=== PATIENT | female | born 1930 | race Caucasian/White ===

== ENCOUNTER 2016-10-28 08:21 | Outpatient (CLI) | payer MEDICARE, BC ==
[~2016-10-28] VITALS: Ht 165.1 cm; Wt 63.2 kg
--- NOTE | ~2016-10-28 | HEMODYNAMI ---
PATIENT:KATLIN BARGER MEDICAL RECORD: [id number] : 30 LOCATION:[facility] ADMISSION DATE: 10/28/16 Generatedon:10/28/201613:20 Patient name: KATLIN BARGER Patient #: [id number] SSN: : Date of study: 10/28/2016 Page: Of Hemodynamic Procedure Report Patient Data Patient Demographics Procedure consent was obtained First Name: KATLIN Gender: Female Last Name: CHARBEL : 1930 Middle Initial: [place]OL[place] Age: 86 year(s) Patient #: [id number] Race: Unknown Additional ID: [id number] Contact details [address]: [address] [place] [address] State: [place] City: [place] Zip code: [address] Admission Admission Data Admission Date: 10/28/2016 Admission Time: 8:21 Procedure Procedure Types Cath Procedure Peripheral Cath Diagnostic Procedure Miscellaneous Procedure Description Procedure Date Procedure Date: 10/28/2016 Procedure Start Time: 12:51 Procedure Staff Name Function Rickie Diaz MD Performing Physician Madiha Reece RT Scrub Babar Anders RT Monitor Ashia Montero RN Nurse Procedure Data Cath Procedure Fluoroscopy Diagnostic fluoroscopy Total fluoroscopy Time: 0.5 time: 0.5 min min Diagnostic fluoroscopy Total fluoroscopy dose: 6 dose: 6 mGy mGy Procedure Medications Medication Administration Route Dosage Fentanyl I.V. 50 mcg Versed I.V. 1 mg Hemodynamics Rest Heart Rate: 72 (bpm) Snapshots Pre Cath Intra NCS Post Cath Vital Signs Time Heart Resp SPO2 NIBP (mmHg) Rhythm Pain Sedation Rate (ipm) (%) Status Level (bpm) 12:28:32 87 22 95 Measuring NSR 0 (11) 10(A) , No pain 12:28:53 86 22 95 213/111(161) NSR 0 (11) 10(A) , No pain 12:33:52 88 22 95 Auto NIBP NSR 0 (11) 10(A) off , No pain 12:38:51 82 16 93 Auto NIBP NSR 0 (11) 10(A) off , No pain 12:43:50 79 16 96 Auto NIBP NSR 0 (11) 10(A) off , No pain 12:48:49 77 15 96 Auto NIBP NSR 0 (11) 10(A) off , No pain 12:50:23 80 15 96 165/85(115) NSR 0 (11) 10(A) , No pain 12:55:22 79 13 98 Auto NIBP NSR 0 (11) 9(A) off , No pain 13:00:21 78 13 97 Auto NIBP NSR 0 (11) 9(A) off , No pain 13:01:58 78 13 94 151/91(134) NSR 0 (11) 9(A) , No pain 13:03:58 79 15 93 160/96(124) NSR 0 (11) 9(A) , No pain 13:08:53 77 16 96 156/88(123) NSR 0 (11) 9(A) , No pain 13:13:52 76 15 98 Auto NIBP NSR 0 (11) 9(A) off , No pain Medications Time Medication Route Dose Verified Delivered Reason Notes Effectivene ss by by 12:50:04 Fentanyl I.V. 50 Ashia Ashia for mcg Kylah Kylah sedation RN RN 12:50:25 Versed I.V. 1 mg Ashia Ashia for Kylah Kylah sedation RN relief map modeler Log Time Note 12:05:21 Babar Anders RT (R) (CV) sent for patient. Start room use. 12:05:32 Time tracking: Regular hours 12:05:38 Plan of Care:Hemodynamics will remain stable., Cardiac rhythm will remain stable., Comfort level will be maintained., Respiratory function will remain adequate., Patient/ family verbilizes understanding of procedure., Procedure tolerated without complication., Recovers from procedure without complications.. 12:05:47 Patient received from Outpatients to IR Alert and oriented. Tansferred to table in Supine position. 12:05:53 Correct patient and procedure confirmed by team. 12:05:55 Signed procedure consent form obtained from patient. 12:05:56 ECG and BP/O2 sat monitors applied to patient. 12:06:03 Full Disclosure recording started 12:06:03 - 12:06:10 H&P Date Dictated: 10/28/2016 H&P Addendum completed by physician on day of procedure. (MUST COMPLETE FOR ALL OUTPATIENTS). 12:06:11 Pre-procedure instructions explained to patient. 12:06:12 Pre-op teaching completed and patient verbalized understanding. 12:06:14 Family in waiting room. 12:06:16 Patient NPO since Midnight. 12:06:23 Is the patient allergic to Iodine/contrast media? No. 12:06:30 Is patient on blood thinner?No 12:06:32 Patient diabetic? No. 12:06:33 - 12:06:33 ----Pre-sedation anethsthesia assessment.---- 12:06:36 Previous problem with sedation/anesthesia? No ? 12:06:39 Snore? No 12:06:41 Sleep apnea? No 12:06:43 Deviated septum? No 12:06:49 Opens mouth fully? Yes 12:06:51 Sticks out tongue? Yes 12:06:53 Airway obstruction? No ? 12:06:56 Dentures? No ? 12:07:03 Use device set IR Diagnostic 12:07:04 Bag Decanter opened to sterile field. 12:07:04 Sterile Angiographic Pack opened to sterile field. 12:07:22 Patient pain scale 0/10 no. 12:26:44 Vital chart was started 12:32:08 Sharps counted by scrub and verified by R.N. 12:32:08 Alarms reviewed by R. N. 12:32:13 Right abdomen area was prepped with chlora-prep and draped in sterile fashion 12:49:39 Baseline sample Acquired. 12:49:45 Physician arrived 12:49:45 --------ALL STOP TIME OUT------ 12:49:46 Final Timeout: patient, procedure, and site verified with staff and physician. All members of the team are in agreement. 12:49:52 Right abdomen site verified by team. 12:49:56 Physical assessment completed. ASA score P 2 - A patient with mild systemic disease as per Rickie Diaz MD. 12:50:04 Fentanyl 50 mcg I.V. was administered by Ashia Montero RN; for sedation; 12:50:25 Versed 1 mg I.V. was administered by Ashia Montero RN; for sedation; 12:50:28 Sedation plan: IV Moderate Sedation Versed, Fentanyl 12:50:35 Procedure started. 12:51:11 Local anesthetic to Abdominal area with Lidocaine 1% by Rickie Diaz MD.INITIAL ACCESS ONLY 12:51:31 PLEURX PERITON drainage catheter opened to sterile field. 12:58:44 DILATOR, VESSEL 20 opened to sterile field. 13:11:58 2 liters drained 13:13:40 Procedure ended.(Physican Out) 13:14:39 Fluoroscopy time 00.50 minutes. 13:14:45 Fluoroscopy dose: 6 mGy 13:14:45 Flurop Dose total: 6 13:14:48 Sharps counted by scrub and verified by R.N. 13:14:50 Insertion/operative site no bleeding no hematoma. 13:14:54 Post-op/insertion site Right Abdominal area dressed using a 4 x 4 and Tegaderm. 13:15:01 Post Abdominal area:stable 13:15:08 Post-procedure physical assessment completed. ASA score P 2 - A patient with mild systemic disease as per Rickie Diaz MD. 13:15:12 Post procedure rhythm: unchanged. 13:15:17 Procedure and supply charges have been captured, reviewed, submitted an d are correct. 13:15:19 Post procedure instruction explained to patient.Patient verbalizes understanding. 13:18:25 Vital chart was stopped 13:20:03 Report given to Outpatients. 13:20:07 Patient transfered to Outpatients with Stretcher. Device Usage Item Name Manufacture Quantity Catalog Hospital Part Current Minimal Lot# / Number Charge Number Stock Stock Serial# Code Bag Decanter Microtek 1 [id number] 5 [employer] Sterile Cardinal 1 [id number] 5 Angiographic Health Pack [facility] [id number] 5 PERITON drainage catheter DILATOR, [facility] 1 [id number] VESSEL 05/26 Signature Audit [place] Stage Time Signature Unsigned Intra-Procedure 10/28/2016 Babar 1:20:51 PM Chago RT (R) (CV) Signatures Monitor : Babar Signature : Chago RT Date : Time : [address] [address]
[2016-10-28] MEDS ORDERED: ZEBETA5 MG PO (10:20)
[2016-10-28] MEDS ORDERED: LISINOPRIL2.5 MG PO (10:20)
[2016-10-28] MEDS ORDERED: OXYBUTYNIN CHLOR5 MG PO (10:21)
[2016-10-28] MEDS ORDERED: PHENERGAN25 M1 PO (10:22)
[2016-10-28] MEDS ORDERED: ZOFRAN8 MG PO (10:22)
[2016-10-28 10:32] VITALS: BP 191/91; Ht 165.1 cm; Wt 63.2 kg
[2016-10-28] MEDS ORDERED: BENZONATATE200 MG PO (10:45)
[2016-10-28] MEDS ORDERED: ZEJULA PO (10:46)
[2016-10-28 10:58] LABS: BASOPHILS 0.4 % (0-2); EOSINOPHILS 1.7 % (0-7); HEMATOCRIT 34.4 % (36.0-48.0); HEMOGLOBIN 11.6 g/dL (12-16); IMMATURE GRANULOCYTES 0.4 % (0-5); LYMPHOCYTES 16.9 % (15-50); MCH 29.3 pg (26.0-34.0); MCHC 33.7 g/dL (31.0-37.0); MCV 86.9 fL (80.0-100.0); MEAN PLATELET VOLUME 8.3 fL (7.4-10.4); MONOCYTES 11.6 % (2-11); PLATELET COUNT 216 10x3/uL (130-400); RBC 3.96 10x6/uL (4.00-5.40); RDW 17.5 % (11.5-14.5); WBC 7.1 10x3/uL (4.8-10.8)
[2016-10-28 11:06] LABS: APTT 26.1 SECONDS (22.8-39.4); INR 0.94 (0.85-1.17); PROTIME 12.5 SECONDS (11.6-15.0)
[2016-10-28 11:08] LABS: ANION GAP 11.4 mmol/L (8-16); CALCIUM 8.2 mg/dL (8.5-10.1); CARBON DIOXIDE 28.2 mmol/L (21.0-32.0); CREATININE - SERUM 0.8 mg/dL (0.6-1.3); POTASSIUM - SERUM 3.6 mmol/L (3.5-5.1)
--- NOTE | 2016-10-28 18:54 | NUR ---
1500--ALL VITAL SIGNS CHARTED ON POST PROCEDURE VITAL SIGN SHEET. ONEIL ROE 1600--IV DC'D. ONEIL ROE 1700--DISCHARGE INSTRUCTIONS GIVEN, PT VERBALIZES UNDERSTANDING. PT OFF UNIT VIA WC. ONEIL ROE
== END 2016-10-28 17:00 | disposition home or self-care (01) ==
LOC: D.RAD 08:21 → D.OPS 08:21 → D.RAD 10:30 → D.OPS 17:00
PROVIDERS: Radiology Diagnostic Radiology
DX: C56.9 Malignant neoplasm of unspecified ovary (principal); R18.0 Malignant ascites